=== PATIENT | female | born 1955 | race Caucasian/White ===

== ENCOUNTER 2020-11-11 18:46 | Emergency (ER) | payer MEDICAID, SELFPAY ==
--- NOTE | ~2020-11-11 | XR_ITS ---
EXAMINATION: XR HAND, LEFT CLINICAL INFORMATION: Thumb pain COMPARISON: None TECHNIQUE: PA, lateral, and oblique views of the left hand. FINDINGS: Mild degenerative changes present at the DIP joints most marked in the first and fifth digits. Otherwise, the exam is within normal limits. No fracture seen. XR/XR hand LT min 3V IMPRESSION: Degenerative changes present first and fifth DIP joints.
[2020-11-11 19:07] VITALS: BP 116/68; PULSE 82; RESP 16; TEMP 36.8; O2SAT 97; BMI 36.8
--- NOTE | 2020-11-11 20:57 | ED_ITS ---
HPI - Extremity Problem General Chief complaint: Extremity Injury, Upper Stated complaint: thumb inj Source: patient Mode of arrival: ambulatory Limitations: no limitations History of Present Illness HPI Narrative: 65-year-old female with past medical history fibromyalgia, hypertension, and diabetes presents with left thumb injury. She was walking her dog and the dog ran away, pulling her thumb backwards. She states that she is unable to bend the thumb. Does not have any pain in the other digits, denies falling, or any other complaints. MD Complaint: extremity pain (Left thumb) Onset (ago): hour(s) (Within the hour of arrival) Pain Consistency: constant Location: left Severity scale (1-10): 9 Quality: aching Relieving factors: nothing Exacerbating factors: range of motion and palpation Associated symptoms: denies other symptoms Related Data Previous Rx's Medication Instructions Recorded ibuprofen 600 mg PO TID PRN #20 tab 11/11/20 Allergies Allergy/AdvReac Type Severity Reaction Status Date / Time Penicillins [PENICILLINS] Allergy Severe SWELLING Verified 11/11/20 19:07 zolpidem [From AMBIEN] Allergy Unknown HALLUCINATI Verified 11/11/20 19:07 ONS Review of Systems Review of Systems: Constitutional: No Fever, No Chills ENT/Mouth: No Ear Pain, No Hoarseness, No sore throat Eyes: No Eye Pain, No Swelling, No Redness, No Foreign Body Cardiovascular: No Chest Pain, No SOB Respiratory: No Cough, No Dyspnea Gastrointestinal: No Nausea, No Vomiting, No Diarrhea, No abdominal Pain Genitourinary: No Dysuria, No Hematuria Musculoskeletal: positive left thumb pain, No Myalgias, No Joint Swelling Skin: No Skin lacerations, No rash Neuro: No Weakness, No Numbness, No Paresthesias, No Loss of Consciousness, No Dizziness, No Headache Psych: No Anxiety/Panic, No Depression Heme/Lymph: no easy bruising, no Lymphadenopathy Endocrine: No Polyuria, No Polydipsia Yes all other systems are reviewed and are negative [facility] Past Medical History Attestation statement: The following information was validated with the patient. Source: old records reviewed Medical History (Updated 11/12/20 @ 00:01 by Jose Miguel Lux) Asthma Constipation Fibromyalgia Surgical History History of Hx of colonoscopy Social History Social History Alcohol intake: never Smoking Status: Never smoker Smoked in Last 30 Days: No Second Hand Smoke Exposure: No Use of substances other than those prescribed or required for medical reasons: No Advance Directives: No Advance Directives Information Provided: No Physical Exam Vital Signs: Vital Signs: Last Vital Signs Temp 98.2 F 11/11/20 19:07 Pulse 82 11/11/20 19:07 Resp 16 11/11/20 19:07 BP 116/68 11/11/20 19:07 Pulse Ox 97 11/11/20 19:07 Body Mass Index 36.8 Appearance: Alert. Oriented X3. No acute distress. Eyes: Pupils equal, round and reactive to light. ENT: Pharynx normal. Neck: Normal inspection. Neck supple. CVS: Normal heart rate and rhythm. Pulses normal. Respiratory: No respiratory distress. Breath sounds normal. Abdomen: Soft and nontender. Skin: Skin warm and dry. Normal skin color. Normal skin turgor. Extremities: No lower extremity edema. Full range of motion to all digits except for her left thumb, unable to flex and extend, no snuffbox tenderness, thenar tenderness noted. Neuro: No motor deficit. No sensory deficit. Course Course Course Narrative: 65-year-old female presents with left thumb injury after hyperextension. X-rays are negative for acute findings, but based on patient's physical exam we will place patient in a cock-up splint and have her follow-up with Orthopedics. Patient verbalized understanding of and agrees to plan of care discharge home. MDM - Extremity (Nontraumatic) MDM Narrative Medical decision making narrative: Fracture, sprain, ligament injury Medical Records Attestation: I reviewed the patient's medical records. Imaging Data Left thumb x-ray: Attestation: I personally reviewed and interpreted this imaging study as follows: Radiologist's impression: EXAMINATION: XR HAND, LEFT CLINICAL INFORMATION: Thumb pain COMPARISON: None TECHNIQUE: PA, lateral, and oblique views of the left hand. FINDINGS: Mild degenerative changes present at the DIP joints most marked in the first and fifth digits. Otherwise, the exam is within normal limits. No fracture seen. XR/XR hand LT min 3V IMPRESSION: Degenerative changes present first and fifth DIP joints. Discharge Plan Discharge Clinical Impression: Left thumb sprain Patient Disposition: Home, Self-Care Instructions: Finger Sprain (ED) Additional Instructions: You were evaluated for left thumb pain. X-rays negative for fracture or dislocation. It is suspected that you have a sprain to the left thumb. Please follow-up with orthopedics. Use Motrin as needed for pain management. Use cock-up splint as needed for comfort. Please use ice elevation to help reduce swelling and pain. Thank you for choosing this emergency department for evaluation. Please follow-up with primary care physician as needed. Return to the emergency department for any new, concerning, or worsening symptoms. Prescriptions: New ibuprofen 600 mg tablet 600 mg PO TID PRN (Reason: pain) Qty: 20 RF: 0 Referrals: Lauren Grande PA-C [[facility]] - 2 days (Suspected left thumb sprain) Interventions: ED Discharge Assessment Last Done: 11/11/20 22:00 Discharge Date/Time: 11/11/20 22:05
== END 2020-11-11 22:05 | disposition home or self-care (01) ==
PROVIDERS: Emergency Provider Internal Medicine
DX: S63.602A Unspecified sprain of left thumb, initial encounter (principal); M79.642 Pain in left hand; X50.0XXA Overexertion from strenuous movement or load, initial encounter; Y93.K1 Activity, walking an animal; Y92.480 Sidewalk as the place of occurrence of the external cause; Y99.9 Unspecified external cause status; Z79.899 Other long term (current) drug therapy
CPT/HCPCS: 29130; 73130; 99284

== ENCOUNTER 2021-03-08 02:56 | Emergency (ER) | payer MEDICAID, SELFPAY ==
--- NOTE | ~2021-03-08 | CT_ITS ---
EXAMINATION: CT ABDOMEN AND PELVIS WITHOUT CONTRAST CLINICAL INFORMATION: Right flank pain COMPARISON: None TECHNIQUE: Multidetector volumetric imaging was performed from the superior aspect of the liver through the pubic symphysis. Sagittal and coronal reformatted images were obtained on the technologist's workstation. This CT examination was performed using dose optimization techniques as appropriate, variously including the following: *Automated exposure control *Adjustment of mA and/or kV according to patient size (this includes techniques or standardized protocols for targeted exams where dose is matched to indication/reason for exam; i.e. extremities or head) *Use of iterative reconstruction technique DLP: 626 mGy-cm FINDINGS: LUNG BASES: The visualized lung bases are unremarkable. LIVER, GALLBLADDER, AND BILIARY TREE: The liver is normal in size, shape, and attenuation. No focal hepatic lesion or biliary ductal dilatation is present. The gallbladder is unremarkable with no evidence of radiopaque gallstones, gallbladder wall thickening, or obvious pericholecystic inflammatory changes. PANCREAS: Unremarkable. SPLEEN: Unremarkable. ADRENAL GLANDS: Unremarkable. KIDNEYS AND URETERS: The right kidney is atrophic. There is a right lower pole renal calculus measuring up to 8 mm. There is mild prominence of the right ureter with no obstructing calculus seen. No left-sided hydronephrosis or obstructing calculus. BLADDER: Mildly distended and grossly unremarkable. GASTROINTESTINAL TRACT: The small and large bowel are unremarkable. The appendix may be collapsed. No free fluid or free air is seen. ABDOMINAL WALL: No significant hernia is appreciated. LYMPH NODES: Normal. VASCULAR: Mild vascular calcification noted. PELVIC VISCERA: Unremarkable. OSSEOUS STRUCTURES: Unremarkable. CT/CT abdomen pelvis wo con IMPRESSION: Atrophic right kidney and mildly dilated ureter, with no obstructing calculus seen. Right lower pole renal calculus measures up to 8 mm.
[2021-03-08 02:58] VITALS: BP 137/82; PULSE 88; RESP 16; TEMP 36.8; O2SAT 95; BMI 33.0
[2021-03-08 03:22] LABS: Glucose Urine UA NEG (NEG); Leukocyte Esterase Urine 2+ (NEG); Nitrite Urine NEG (NEG); Specific Gravity - Urine 1.025 (1.005-1.025); UACC Culture Trigger YES; Urine Blood 3+ (NEG); Urine Ketones 5 MG/DL (NEG); Urine Protein 3+ MG/DL (NEG-TRACE)
[2021-03-08 03:24] LABS: Appearance Urine TURBID; Color Urine YELLOW
[2021-03-08 03:33] LABS: MANUAL DIFF FLAG NO
[2021-03-08 03:35] LABS: Basophils Absolute Auto 0.1 X10*3/uL (0.0-0.2); Basophils Percent Auto 0.7 % (0-2); Eosinophils Absolute Auto 0.2 X10*3/uL (0.0-0.4); Hematocrit 41.3 % (37-47); Hemoglobin 13.1 g/dl (12.0-16.0); Imm Gran Abs Auto 0.02 X10*3/uL (0.00-0.03); Imm Gran Pct Auto 0.2 % (0.0-0.4); Lymphocytes Absolute Auto 2.3 X10*3/uL (1.2-4.9); Lymphocytes Percent Auto 20.7 % (20-40); Mean Corpuscular HGB Conc 31.7 g/dl (31.0-35.0); Mean Corpuscular Hemoglobin 25.5 pg (27.0-33.0); Mean Corpuscular Volume 80.5 fL (80-98); Mean Platelet Volume 9.9 fL (9.4-12.3); Monocytes Absolute Auto 0.5 X10*3/uL (0.1-1.2); Monocytes Percent Auto 4.9 % (2-11); Neutrophils Absolute Auto 7.8 X10*3/uL (2.0-8.3); Neutrophils Percent Auto 71.5 % (45-73); Platelet Count 342 X10*3/uL (160-400); Red Blood Count 5.13 X10*6/uL (4.20-5.50); Red Cell Distribution Width 14.8 % (11.0-16.0); White Blood Count 10.9 X10*3/uL (4.8-10.8)
--- NOTE | 2021-03-08 03:35 | ED_ITS ---
HPI - Female Genitourinary General Chief complaint: Urogenital-Female Stated complaint: abd pain, can't pee Time Seen by Provider: 03/08/21 03:26 Source: patient Mode of arrival: ambulatory Limitations: no limitations History of Present Illness HPI Narrative: Patient comes to the emergency room complaining of with the right flank pain that started 2 hours prior to arrival. Patient states the pain is constant, nonradiating. Patient states that initially she could not pass urine, but when she could, she thinks she saw gravel like material in her urine, no blood. Patient denies fever chills Related Data Previous Rx's Medication Instructions Recorded ibuprofen 600 mg PO TID PRN #20 tab 11/11/20 levofloxacin 500 mg PO DAILY #6 tab 03/08/21 Allergies Allergy/AdvReac Type Severity Reaction Status Date / Time Penicillins [PENICILLINS] Allergy Severe SWELLING Verified 03/08/21 02:58 zolpidem [From AMBIEN] Allergy Unknown HALLUCINATI Verified 03/08/21 02:58 ONS Review of Systems Review of Systems: Constitutional : No Weight loss, No Fever, No Chills, No Night Sweats, No Fatigue, No Malaise ENT/Mouth : No Hearing loss, No Ear Pain, No Nasal Congestion, No Sinus Pain, No Hoarseness, No sore throat, No Rhinorrhea, No Swallowing Difficulty Eyes: No Eye Pain, No Swelling, No Redness, No Foreign Body, No Discharge, No Vision Changes Cardiovascular : No Chest Pain, No SOB, No Dyspnea on Exertion, No Orthopnea, No Edema, No Palpitations Respiratory : No Cough, No Sputum, No Wheezing, No Smoke Exposure, No Dyspnea Gastrointestinal : No Nausea, No Vomiting, No Diarrhea, No Constipation, No abdominal Pain, No Hematochezia, No Melena Genitourinary : no irregular bleeding, complaining of dysuria, occasional di fficulty urinating for the last 2 hours, No Urinary Frequency, No Hematuria, No Urinary Incontinence, No Urgency, complaining of right Flank Pain, No Urinary Flow Changes, No Hesitancy Musculoskeletal : No joint pain, No Myalgias, No Joint Swelling Skin : No Skin Lesions, No rash Neuro : No Weakness, No Numbness, No Paresthesias, No Loss of Consciousness, No Dizziness, No Headache Psych : No Anxiety/Panic, No Depression, No SI/HI/AH/VH, No Social Issues, Heme/Lymph: No Bruising, No Bleeding,No Lymphadenopathy Endocrine : No Polyuria, No Polydipsia, No Temperature Intolerance [facility] Past Medical History Medical History Asthma Constipation Fibromyalgia Surgical History History of Hx of colonoscopy Social History Social History Alcohol intake: never Second Hand Smoke Exposure: No Advance Directives: No Advance Directives Information Provided: No Physical Exam Vital Signs: Vital Signs: Last Vital Signs Temp 98.2 F 03/08/21 02:58 Pulse 88 03/08/21 02:58 Resp 16 03/08/21 02:58 BP 137/82 03/08/21 02:58 Pulse Ox 95 03/08/21 02:58 Body Mass Index 33.0 Appearance: Alert. Oriented X3. No acute distress. Eyes: Pupils equal, round and reactive to light. ENT: Pharynx normal. Neck: Normal inspection. Neck supple. No lymph nodes noted. No crepitus CVS: Normal heart rate and rhythm. Pulses normal. Normal S1 and S2 Respiratory: No respiratory distress. Breath sounds normal. No Wheezing. No rales Abdomen: Soft and nontender. No rigidity. No distention. Mild CVA tenderness in the right side Skin: Skin warm and dry. Normal skin color. Normal skin turgor. Extremities: No lower extremity edema. No lower extremity edema. No Lacerations. No Rash Neuro: Oriented X 3. No motor deficit. No sensory deficit. Moving all extermities. No slurred speech. Course Course Course Narrative: I discussed with the patient that she does not have ureterolithiasis at this time, patient does have an atrophic right kidney and a right lower pole calculus. Patient states that she is prone to having UTIs, patient will be treated with levofloxacin, since patient has right flank pain she clinically has pyelonephritis. At this time, sepsis is not suspected. Patient instructed to follow up with urology since she has recurrent UTIs, patient may need long-term antibiotics to prevent UTIs. MDM - Female Genitourinary Lab Data Result diagrams: 03/08/21 03:28 03/08/21 03:28 Labs: Lab Results 03/08/21 03/08/21 03/08/21 Range/Units 03:06 03:28 03:28 WBC 10.9 H (4.8-10.8) X10*3/uL RBC 5.13 (4.20-5.50) X10*6/uL Hgb 13.1 (12.0-16.0) g/dl Hct 41.3 (37-47) % MCV 80.5 (80-98) fL MCH 25.5 L (27.0-33.0) pg MCHC 31.7 (31.0-35.0) g/dl RDW 14.8 (11.0-16.0) % Plt Count 342 (160-400) X10*3/uL MPV 9.9 (9.4-12.3) fL Immature Gran % (Auto) 0.2 (0.0-0.4) % Neut % (Auto) 71.5 (45-73) % Lymph % (Auto) 20.7 (20-40) % [place] % (Auto) 4.9 (2-11) % Eos % (Auto) 2.0 (0-4) % Baso % (Auto) 0.7 (0-2) % Lymph # (Auto) 2.3 (1.2-4.9) X10*3/uL [place] # (Auto) 0.5 (0.1-1.2) X10*3/uL Eos # (Auto) 0.2 (0.0-0.4) X10*3/uL Baso # (Auto) 0.1 (0.0-0.2) X10*3/uL Abs Immat Gran (auto) 0.02 (0.00-0.03) X10*3/uL Absolute Neuts (auto) 7.8 (2.0-8.3) X10*3/uL Absolute Nucleated RBC 0.000 (0.0-0.012) X10*3/uL Nucleated RBC % (auto) 0.0 (0.0-0.2) /100WBC Sodium 140 (135-145) mmol/L Potassium 3.9 (3.3-5.1) mmol/L Chloride 107 (96-108) mmol/L Carbon Dioxide 24 (22-29) mmol/L Anion Gap 13 (12-20) BUN 15 (9-16) mg/dL Creatinine 1.32 (0.5-1.4) mg/dL Estim Creat Clear Calc 34.6 Estimated GFR 41 Random Glucose 119 H (60-115) mg/dL Calcium 9.6 (8.4-10.2) mg/dL Total Bilirubin 0.6 (0.0-1.0) mg/dL AST 16 (5-31) U/L ALT 14 (0-31) U/L Alkaline Phosphatase 132 H (39-117) U/L Total Protein 7.6 (6.5-8.0) g/dL Albumin 4.3 (3.5-5.0) g/dL Urine Color YELLOW Urine Appearance TURBID Urine pH 6.0 (5.0-8.0) Ur Specific [place] 1.025 (1.005-1.025) Urine Protein 3+ H (NEG-TRACE) MG/DL Urine Glucose (UA) NEG (NEG) MG/DL Urine Ketones 5 (NEG) MG/DL Urine Blood 3+ H (NEG) Urine Nitrite NEG (NEG) Ur Leukocyte Esterase 2+ H (NEG) Urine RBC 1-4 (0) /HPF Urine WBC TNTC H (0-4) /HPF Urine WBC Clumps NOTED Ur Squamous Epith Cells TRACE /LPF Urine Bacteria TRACE /LPF Imaging Data CT scan - abdomen: Radiologist's impression: FINDINGS: LUNG BASES: The visualized lung bases are unremarkable. LIVER, GALLBLADDER, AND BILIARY TREE: The liver is normal in size, shape, and attenuation. No focal hepatic lesion or biliary ductal dilatation is present. The gallbladder is unremarkable with no evidence of radiopaque gallstones, gallbladder wall thickening, or obvious pericholecystic inflammatory changes. PANCREAS: Unremarkable. SPLEEN: Unremarkable. ADRENAL GLANDS: Unremarkable. KIDNEYS AND URETERS: The right kidney is atrophic. There is a right lower pole renal calculus measuring up to 8 mm. There is mild prominence of the right ureter with no obstructing calculus seen. No left-sided hydronephrosis or obstructing calculus. BLADDER: Mildly distended and grossly unremarkable. GASTROINTESTINAL TRACT: The small and large bowel are unremarkable. The appendix may be collapsed. No free fluid or free air is seen. ABDOMINAL WALL: No significant hernia is appreciated. LYMPH NODES: Normal. VASCULAR: Mild vascular calcification noted. PELVIC VISCERA: Unremarkable. OSSEOUS STRUCTURES: Unremarkable. CT/CT abdomen pelvis wo con IMPRESSION: Atrophic right kidney and mildly dilated ureter, with no obstructing calculus seen. Right lower pole renal calculus measures up to 8 mm. Discharge Plan Discharge Clinical Impression: Pyelonephritis Patient Disposition: Home, Self-Care Instructions: Kidney Infection (ED) Additional Instructions: Please follow-up with your primary care physician tomorrow. If you have any worsening or new symptoms, please return to the emergency room or call 911 Prescriptions: New levofloxacin 500 mg tablet 500 mg PO DAILY Qty: 6 RF: 0 No Action ibuprofen 600 mg tablet 600 mg PO TID PRN (Reason: pain) Qty: 20 RF: 0
[2021-03-08 03:45] LABS: Bacteria Urine TRACE /LPF; Squamous Epithelial Cell Urine TRACE /LPF; UACC CULT YES; WBC Clumps Urine NOTED; WBC Urine TNTC /HPF (0-4)
[2021-03-08 04:01] LABS: Alanine Aminotransferase 14 U/L (0-31); Albumin Level 4.3 g/dL (3.5-5.0); Alkaline Phosphatase 132 U/L (39-117); Anion Gap 13 (12-20); Aspartate Amino Transferase 16 U/L (5-31); Bilirubin Total 0.6 mg/dL (0.0-1.0); Blood Urea Nitrogen 15 mg/dL (9-16); Calcium 9.6 mg/dL (8.4-10.2); Carbon Dioxide 24 mmol/L (22-29); Chloride 107 mmol/L (96-108); Creatinine Clr Calc Pharmacy 34.6; Estimated Glomerular Filt Rate 41; Glucose Random 119 mg/dL (60-115); Potassium 3.9 mmol/L (3.3-5.1); Sodium 140 mmol/L (135-145); Total Protein 7.6 g/dL (6.5-8.0)
--- NOTE | 2021-03-08 04:22 | PC.NURSE ---
PT TO ROOM, CHG INTO GOWN AND MD AT BEDSIDE. PT ALERT, SPEAKING IN FULL SENTENCES, RESPIRATIONS EASY, N/L. SKIN W/D. AWAITING FURTHER ORDERS.
[2021-03-08] MEDS: levoFLOXacin 500 MG TABLET PO (06:22)
== END 2021-03-08 06:39 | disposition home or self-care (01) ==
PROVIDERS: Emergency Provider Emergency Medicine
DX: N12 Tubulo-interstitial nephritis, not specified as acute or chronic (principal); N20.0 Calculus of kidney; I10 Essential (primary) hypertension; E11.9 Type 2 diabetes mellitus without complications
CPT/HCPCS: 36415; 74176; 80053; 81001; 85025; 87086; 99283; 99284

== ENCOUNTER 2021-11-01 12:39 | Emergency (ER) | payer OTHER, SELFPAY ==
--- NOTE | ~2021-11-01 | XR_ITS ---
EXAMINATION: XR CHEST CLINICAL INFORMATION: Chest pain COMPARISON: Previous chest x-ray February 2017 TECHNIQUE: Frontal view of the chest was obtained. FINDINGS: No significant abnormality is noted involving the heart, lungs, mediastinum, bony thorax or soft tissues. XR/XR chest 1V IMPRESSION: Unremarkable examination.
[2021-11-01 12:44] VITALS: BP 139/64; PULSE 98; RESP 18; TEMP 36.9; O2SAT 98; BMI 34.1
--- NOTE | 2021-11-01 12:47 | ECG_ITS ---
Test Reason : CHEST PAIN Blood Pressure : / mmHG Vent. Rate : 074 BPM Atrial Rate : 074 BPM P-R Int : 144 ms QRS Dur : 068 ms QT Int : 388 ms P-R-T Axes : 018 016 024 degrees QTc Int : 430 ms Normal sinus rhythm Low voltage QRS Borderline ECG When compared with ECG of 16-MAR-2017 07:22, No significant change was found Referred By: Generic ED Physician Electronically Signed By:BRANDON TOLENTINO MD
[2021-11-01 13:01] LABS: MANUAL DIFF FLAG NO
[2021-11-01 13:02] LABS: Basophils Absolute Auto 0.1 X10*3/uL (0.0-0.2); Basophils Percent Auto 0.8 % (0-2); Eosinophils Absolute Auto 0.1 X10*3/uL (0.0-0.4); Hematocrit 39.7 % (37.0-47.0); Hemoglobin 12.8 g/dl (12.0-16.0); Imm Gran Abs Auto 0.01 X10*3/uL (0.00-0.03); Imm Gran Pct Auto 0.2 % (0.0-0.4); Lymphocytes Absolute Auto 1.9 X10*3/uL (1.2-4.9); Lymphocytes Percent Auto 29.2 % (20-40); Mean Corpuscular HGB Conc 32.2 g/dl (31.0-35.0); Mean Corpuscular Hemoglobin 26.3 pg (27.0-33.0); Mean Corpuscular Volume 81.7 fL (80.0-98.0); Mean Platelet Volume 10.2 fL (9.4-12.3); Monocytes Absolute Auto 0.3 X10*3/uL (0.1-1.2); Monocytes Percent Auto 3.8 % (2-11); Neutrophils Absolute Auto 4.2 x10*3/uL (2.0-8.3); Platelet Count 289 X10*3/uL (160-400); Red Blood Count 4.86 X10*6/uL (4.20-5.50); Red Cell Distribution Width 13.7 % (11.0-16.0); White Blood Count 6.5 X10*3/uL (4.8-10.8)
[2021-11-01 13:22] LABS: Anion Gap 10 (12-20); Blood Urea Nitrogen 12 mg/dL (9-16); Calcium 9.3 mg/dL (8.4-10.2); Carbon Dioxide 24 mmol/L (22-29); Chloride 110 mmol/L (96-108); Creatinine Clr Calc Pharmacy 54.4; Estimated Glomerular Filt Rate > 60; Glucose Random 129 mg/dL (60-115)
[2021-11-01 13:27] LABS: Sodium 140 mmol/L (135-145); Troponin-I High Sensitivity < 3.5 ng/L (<3.5-17.0)
--- NOTE | 2021-11-01 20:08 | ED.CHESTPAIN ---
HPI - Chest Pain General Chief Complaint: Chest Pain Stated Complaint: chest pain Time Seen by Provider: 11/01/21 19:54 Source: patient Mode of arrival: ambulatory Limitations: no limitations History of Present Illness HPI narrative: 66-year-old female who presents emergency department for evaluation left-sided chest pain palpitations. The patient states that afternoon she was in a car going to lunch with her daughter when she had a sudden onset of palpitations. She describes the sensation as a heart racing and squeezing sensation the left side of her heart. She states that this sensation lasted for approximately 20 minutes then resolved. She had a associated lightheadedness, dizziness, nausea and left hand numbness. She also felt hot and sweaty. She states that she did have palpitations in the past and believes that she had a Holter monitor in the past as well. She states that her 5 years prior and she is under lot of stress since she is taking care of 2 of her children with autism and developmental delay (19 years old and 30 years old). She denied fever, rhinorrhea, sore throat, cough, shortness of breath, dyspnea on exertion, vomiting, diarrhea, abdominal pain. Related Data Previous Rx's Medication Instructions Recorded ibuprofen 600 mg tablet 600 mg PO TID PRN #20 tab 11/11/20 levofloxacin 500 mg tablet 500 mg PO DAILY #6 tab 03/08/21 Allergies Allergy/AdvReac Type Severity Reaction Status Date / Time Penicillins [PENICILLINS] Allergy Severe SWELLING Verified 03/08/21 02:58 zolpidem [From AMBIEN] Allergy Unknown HALLUCINATI Verified 03/08/21 02:58 ONS Review of Systems Review of Systems: Yes all other systems are reviewed and are negative [facility] Past Medical History [facility] Narrative: Past medical history: Asthma, fibromyalgia. The patient's past medical history lists hypertension and diabetes but she states that she does not have these 2 conditions. Past surgical history: . Social history: She denies tobacco, alcohol and drug use. Medical History Asthma Constipation Fibromyalgia Surgical History History of Hx of colonoscopy Social History Social History Alcohol intake: never Second Hand Smoke Exposure: No Advance Directives: No Advance Directives Information Provided: Yes Physical Exam Vital Signs: Vital Signs: Last Vital Signs Temp 98.3 F 11/01/21 20:22 Pulse 80 11/01/21 20:22 Resp 16 11/01/21 20:22 BP 117/81 11/01/21 20:22 Pulse Ox 100 11/01/21 20:22 BMI result Body Mass Index 34.1 Const: General: cooperative and no acute distress Orientation/consciousness: oriented to person and oriented to place Limitations: no limitations HENMT: Head: Yes normal to inspection, Yes normocephalic and Yes atraumatic Ears: external ears normal General nose exam: Normal external nose present Face and sinus: Yes normal facial exam Mouth: Normal oral and palatal mucosa present Throat: Yes posterior oropharynx normal Eyes: General: appearance normal, both eyes and all related structures Pupils: Equal, round and reactive pupils present Neck: Neck: Yes normal visual inspection, Yes no lymphadenopathy, Yes trachea midline and Yes supple Chest: Chest palpation & inspection: normal inspection of the chest and normal palpation of entire chest wall Resp: Effort & Inspection: normal respiratory effort and able to speak in complete sentences Auscultation: clear to auscultation bilaterally Cardio: Rate: regular rate Rhythm: regular rhythm Heart sounds: S1 normal heart sound present, S2 normal heart sound present and no murmurs GI: Inspection: Yes normal to inspection Palpation (GI): Soft to palpation, nontender and no guarding Auscultation: normal bowel sounds : General: Yes no CVA tenderness Back/Spine/Pelvis: Back: no CVA tenderness Skin: General skin exam: no rashes or lesions noted Neuro: General: oriented to person and oriented to place Cranial nerves: Yes CN's II-XII intact bilaterally and Yes Equal, round and reactive pupils present Cognition (Neuro): normal cognition Motor exam (neuro): 5/5 motor strength present throughout Extrem: General: Yes normal to inspection Psych: Appearance: grossly normal Speech and movement: Normal speech and movement present Affect: normal affect Attitude: cooperative Thought process: Normal thought process present Thought content: Normal thought content present Course Course Course Narrative: 66-year-old female who presents emergency department for evaluation of palpitations which lasted approximately 20 minutes. The patient did have associated lightheadedness, left-sided chest heaviness/squeezing sensation, left hand numbness and nausea. Patient states that she has had palpitations in the past and believes that she had a Holter monitor in the past. At the time my evaluation the patient had no symptoms. Patient's vital signs were normal. Physical examination was unremarkable. Patient's CBC, BMP were normal. High sensitivity troponin I was below detectable limits. Twelve EKG was unremarkable. The patient's presentation is consistent with palpitations I did discuss this with her. She was advised to contact her PCP to get an outpatient Holter monitor and further evaluation of her palpitations. She was given printed and verbal instructions and discharged home. MDM - Chest Pain Lab Data Attestation: I reviewed the patient's lab results. Result diagrams: 11/01/21 12:57 11/01/21 12:57 Labs: Lab Results 11/01/21 11/01/21 11/01/21 Range/Units 12:57 12:57 12:57 WBC 6.5 (4.8-10.8) X10*3/uL RBC 4.86 (4.20-5.50) X10*6/uL Hgb 12.8 (12.0-16.0) g/dl Hct 39.7 (37.0-47.0) % MCV 81.7 (80.0-98.0) fL MCH 26.3 L (27.0-33.0) pg MCHC 32.2 (31.0-35.0) g/dl RDW 13.7 (11.0-16.0) % Plt Count 289 (160-400) X10*3/uL MPV 10.2 (9.4-12.3) fL Immature Gran % (Auto) 0.2 (0.0-0.4) % Neut % (Auto) 64.0 (45-73) % Lymph % (Auto) 29.2 (20-40) % [place] % (Auto) 3.8 (2-11) % Eos % (Auto) 2.0 (0-4) % Baso % (Auto) 0.8 (0-2) % Lymph # (Auto) 1.9 (1.2-4.9) X10*3/uL [place] # (Auto) 0.3 (0.1-1.2) X10*3/uL Eos # (Auto) 0.1 (0.0-0.4) X10*3/uL Baso # (Auto) 0.1 (0.0-0.2) X10*3/uL Abs Immat Gran (auto) 0.01 (0.00-0.03) X10*3/uL Absolute Neuts (auto) 4.2 (2.0-8.3) x10*3/uL Absolute Nucleated RBC 0.000 (0.0-0.012) X10*3/uL Nucleated RBC % (auto) 0.0 (0.0-0.2) /100WBC Sodium 140 (135-145) mmol/L Potassium 4.0 (3.3-5.1) mmol/L Chloride 110 H (96-108) mmol/L Carbon Dioxide 24 (22-29) mmol/L Anion Gap 10 L (12-20) BUN 12 (9-16) mg/dL Creatinine 0.92 (0.5-1.4) mg/dL Estim Creat Clear Calc 54.4 Estimated GFR > 60 Random Glucose 129 H (60-115) mg/dL Calcium 9.3 (8.4-10.2) mg/dL Troponin I High Sens < 3.5 (<3.5-17.0) ng/L ECG Data ECG #1: Interpretation: 1246: Normal sinus rhythm with a rate of 74, normal MS interval, QRS duration and QTC interval, inverted T-wave in lead 3, no ST segment elevation, no ST segment depression, no PACs, no PVCs, this is a normal EKG. Discharge Plan Discharge Clinical Impression: Palpitation Patient Disposition: Home, Self-Care Instructions: Heart Palpitations (DC) Additional Instructions: Your blood work today was normal. Your chest x-ray was unremarkable. Your EKG was unremarkable. Your symptoms are consistent with palpitations. You should call your doctor tomorrow to discuss getting an outpatient Holter monitor to further evaluate your palpitations. You may need other testing as well. Follow-up with your doctor in 2 days. Please return to the emergency department if your symptoms get worse or if you develop any symptoms that are concerning to you. Prescriptions: No Action levofloxacin 500 mg tablet 500 mg PO DAILY Qty: 6 0RF Rx Instructions: Start 03/09/2021 in the morning ibuprofen 600 mg tablet 600 mg PO TID PRN (Reason: pain) Qty: 20 0RF
[2021-11-01 20:22] VITALS: BP 117/81; PULSE 80; RESP 16; TEMP 36.8; O2SAT 100
== END 2021-11-01 20:33 | disposition home or self-care (01) ==
PROVIDERS: Emergency Provider Emergency Medicine Emergency Medical Services
DX: R00.2 Palpitations (principal)
CPT/HCPCS: 36415; 71045; 80048; 84484; 85025; 93005; 99283; 99284

== ENCOUNTER 2022-01-20 09:45 | Outpatient (REF) | payer OTHER, SELFPAY ==
[2022-01-20 11:54] LABS: Anion Gap 9 (12-20); Blood Urea Nitrogen 11 mg/dL (9-16); Calcium 9.4 mg/dL (8.4-10.2); Carbon Dioxide 26 mmol/L (22-29); Chloride 109 mmol/L (96-108); Estimated Glomerular Filt Rate 59; Glucose Random 78 mg/dL (60-115); Magnesium 2.2 mg/dL (1.6-2.6); Potassium 4.3 mmol/L (3.3-5.1); Sodium 140 mmol/L (135-145)
[2022-01-20 12:02] LABS: TSH reflex Free T4 1.39 uIU/mL (0.32-4.0)
== END 2022-01-20 09:46 | disposition home or self-care (01) ==
LOC: HO.LAB 09:45
PROVIDERS: PCP Internal Medicine; Referring Provider Internal Medicine; Visit Provider Internal Medicine Cardiovascular Disease
DX: R06.02 Shortness of breath (principal); R00.2 Palpitations; I50.30 Unspecified diastolic (congestive) heart failure
CPT/HCPCS: 36415; 80048; 83735; 84443; 99202

== ENCOUNTER → 2022-05-22 08:00 | Outpatient (REF) | payer OTHER, SELFPAY ==
--- NOTE | 2022-05-22 08:02 | HM_ITS ---
* Total monitoring time 4 days and 14 hours. * Underlying rhythm is sinus. Average rate 75/Min. Range 52 to 131/Min. * Very rare supraventricular ectopy. * No sustained arrhythmias. * No significant pauses or AV blocks. * No patient diary available. MTDD
--- NOTE | 2022-05-22 08:02 | CA_ITS ---
Acquisition Time: 2022-05-22 08:58:52 Total Exercise Time: 00:02:58 Test Indications: SOB Medications: SEE CHART Protocol: JERONIMO Max HR: 137 BPM 88% of Pred: 154 BPM Max BP: 144/060 mmHG Max Work Load: 4.6 METS Exercise stress test with exercise 2 min 58 sec of Jeronimo protocol, achieving 88% MPHR, with report of moderate sob and then sudden onset dizziness with request to stop ( everything spinning ), No chest discomfort, without arrythmia, with normotensive response to exercise, without EKG changes meeting criteira for ischemia at achieved workload, Baseline EKG does show T wave inversions lead III and aVF which is present throughtout test. Will arrange for a pharmacological nuclear stress test for further evaluation. Test reviewed with Dr. Reza. Referred By: Jimi White Overread By: JULISSA WORTHINGTON
--- NOTE | 2022-05-22 08:02 | CA_ITS ---
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 The calculated ejection fraction is 64% by biplane method. - Peak LV GLS -19%. - No obvious valvular pathology seen on this study. Findings Left Ventricle Normal left ventricular cavity size. There is normal left ventricular wall thickness. The left ventricular systolic function is normal. The calculated ejection fraction is 64% by biplane method. There is no evidence of regional wall motion abnormalities. Diastolic function is normal for age. Peak LV GLS -19%. Atria Both atria are normal in size. Aortic Valve There is a normal trileaflet aortic valve. There is no aortic valve stenosis. There is no aortic valve regurgitation. Mitral Valve The mitral valve appears normal. There is no mitral valve regurgitation. There is no mitral valve stenosis. Pulmonic Valve The pulmonic valve is likely normal. Tricuspid Valve Normal tricuspid valve structure. There is trace tricuspid valve regurgitation. There is no evidence of pulmonary hypertension. Great Vessels The asc aorta is normal in size. Venous The inferior vena cava is normal in size and collapses greater than 50% with inspiration. Pericardium/Pleural There is no evidence of pericardial effusion. Prior Study Comparison No significant change compared to prior study dated: 10/25/2006. Recommendations, Care & Conclusions No obvious valvular pathology seen on this study. Measurements 2D Linear Measurements IVSd: 0.98 0.6-0.9/0.6-1.0 cm LVIDd: 4.30 3.9-5.3/4.2-5.9 cm LVIDd Index: 2.46 2.4-3.2/2.2-3.1 cm/m2 LVIDs: 3.01 2.0-3.6 cm LVPWd: 0.48 0.7-1.1 cm LA Diam: 2.70 2.7-3.8/3.0-4.0 cm LAIDs Index: 1.54 1.5-2.3 cm/m2 LV Mass: 115.96 67-162/88-224 g LV Mass Index: 66.26 43-95/49-115 g/m2 LVOT Diam: 2.00 3.0+(-)1.3 cm 2D Systolic Function EF 4C: 56.90 >55% EF 2C: 69.50 >55% EF BiP: 63.50 >55% Mitral Valve MV Pk E: 0.75 MV PK A: 0.56 MV Decel Time: 182.00 E/A: 1.30 E'Lateral: 13.50 E'Medial: 8.49 E/E' Med: 8.80 E/E' Lat: 5.50 PHT: 53.00 MVA PHT: 4.15 Decel [place]: 4.10 Aortic Valve AoV Pk [place]orge: 1.33 AoV Mn [place]orge: 0.90 AoV VTI: 0.28 AoV Pk Grad: 7.00 Aov Mn Grad: 4.00 MATTHEW Cont.VTI: 2.64 LVOT LVOT Pk [place]orge: 1.10 LVOT Mn [place]: 0.74 LVOT VTI: 0.23 LVOT Pk Grad: 5.00 LVOT Mn Grad: 2.00 LVOT Diam: 2.00 LVOT Area: 3.14 Diastolic Function MV Pk E: 0.75 MV Pk A: 0.56 E/A: 1.30 E'Medial: 8.49 E/E' Med: 8.80 E' Laterial: 13.50 E/E' Lat: 5.50 Right Ventricle TAPSE (mm): 17.90 TVS' Gorge: 10.20 Tricuspid Valve TR Pk [place]: 2.32 TR Pk Grad: 22.00 RA Press: 3.00 RVSP: 25.00 Great Vessels Aorta Sinus of Valsalva: 2.70 2.0-3.5 cm Ao Asc: 2.70 2.1-3.4 cm Pulmonary Valve PV Pk Gorge: 0.87 Peak PV Grad: 3.00 Updated in Other Vendor System with Status of Final Wilmer Bailey MD electronically signed on 05/23/2022 12:40:15 PM with status of Final
== END ==
LOC: HO.CARD 08:00
PROVIDERS: Visit Provider Internal Medicine Cardiovascular Disease
DX: R00.2 Palpitations (principal); R06.02 Shortness of breath
CPT/HCPCS: 93017; 93242; 93306; 93356

== ENCOUNTER → 2022-06-07 11:01 | Outpatient (BNVA) | payer OTHER, SELFPAY | PROVIDERS: PCP Internal Medicine; Referring Provider Internal Medicine; Visit Provider Internal Medicine Cardiovascular Disease | DX: R06.02 Shortness of breath (principal) | CPT/HCPCS: 99212 ==

== ENCOUNTER 2022-09-12 18:17 | Emergency (ER) | payer OTHER, SELFPAY ==
--- NOTE | ~2022-09-12 | CT_ITS ---
EXAMINATION: CT ABDOMEN AND PELVIS WITHOUT CONTRAST CLINICAL INFORMATION: Left flank pain. Back pain. COMPARISON: CT scan abdomen pelvis 03/08/2021 TECHNIQUE: Multidetector volumetric imaging was performed from the superior aspect of the liver through the pubic symphysis. Sagittal and coronal reformatted images were obtained on the technologist's workstation. This CT examination was performed using dose optimization techniques as appropriate, variously including the following: *Automated exposure control *Adjustment of mA and/or kV according to patient size (this includes techniques or standardized protocols for targeted exams where dose is matched to indication/reason for exam; i.e. extremities or head) *Use of iterative reconstruction technique DLP: 586 mGy-cm FINDINGS: LUNG BASES: The visualized lung bases are unremarkable. LIVER, GALLBLADDER, AND BILIARY TREE: The liver is normal in size, shape, and attenuation. No focal hepatic lesion or biliary ductal dilatation is present. The gallbladder is unremarkable with no evidence of radiopaque gallstones, gallbladder wall thickening, or obvious pericholecystic inflammatory changes. PANCREAS: Unremarkable. SPLEEN: Unremarkable. ADRENAL GLANDS: Unremarkable. KIDNEYS AND URETERS: Right kidney is atrophic. Left kidney is mildly hypertrophic. 5 x 7 mm nonobstructive calculus of the lower pole right kidney unchanged since prior study. There is no hydronephrosis. No ureteral calculi. BLADDER: Unremarkable. GASTROINTESTINAL TRACT: No acute abnormality. There is no bowel wall thickening /edema. There is no bowel obstruction. There is a moderate volume of stool in the colon. The appendix is nonvisualized . The small bowel loops are unremarkable. The stomach is normal. There is no hiatal hernia. ABDOMINAL WALL: No significant hernia is appreciated. LYMPH NODES: Normal. VASCULAR: Unremarkable. PELVIC VISCERA: Uterus is anteverted. No adnexal abnormality. OSSEOUS STRUCTURES: Unremarkable. CT/CT abdomen pelvis wo IV con IMPRESSION: 1. No acute abnormality CT scan abdomen pelvis. 2. Atrophic right kidney. Nonobstructive calculus lower pole right kidney. No hydronephrosis. No ureteral calculi. Fleischner guidelines were followed.
[2022-09-12 18:38] VITALS: BP 128/82; PULSE 74; RESP 16; TEMP 36.1; O2SAT 100; BMI 33.5
--- NOTE | 2022-09-12 18:40 | ED_ITS ---
HPI - General Adult General Chief complaint: Back Pain/Injury <LEW Gee - Last Filed: 09/25/22 09:43> Stated complaint: pain in left hip/back area <LEW Gee - Last Filed: 09/25/22 09:43> Time Seen by Provider: 09/12/22 20:03 <LEW Gee - Last Filed: 09/25/22 09:43> Source: patient <Yudelka Davis CNP - Last Filed: 09/13/22 01:03> Mode of arrival: ambulatory <Yudelka Davis CNP - Last Filed: 09/13/22 01:03> Limitations: no limitations <Yudelka Davis CNP - Last Filed: 09/13/22 01:03> History of Present Illness HPI narrative: Patient is a 67-year-old female who presents to emergency department for evaluation of left flank pain, radiating into the left lower back and laterally into the left lower abdomen. Onset of symptoms was 1.5 hours prior to arrival, was very sudden in onset. Denies any particular injury. Denies fevers, chills, nausea, vomiting, dysuria, urinary frequency/urgency/hesitancy, hematuria, constipation, diarrhea <Yudelka Davis CNP - Last Filed: 09/13/22 01:03> Related Data Home medications: Home Medications Medication Instructions Recorded Confirmed ferrous sulfate 325 mg (65 mg 325 mg PO DAILY 01/20/22 01/20/22 iron) tablet (Feosol) Previous Rx's Medication Instructions Recorded cephalexin 500 mg capsule 500 mg PO BID #20 caps 09/12/22 <LEW Gee Last Filed: 09/25/22 09:43> Allergies/adverse reactions: Allergies Allergy/AdvReac Type Severity Reaction Status Date / Time Penicillins [PENICILLINS] Allergy Severe SWELLING Verified 06/07/22 11:02 zolpidem [From AMBIEN] Allergy Unknown HALLUCINATI Verified 06/07/22 11:02 ONS <LEW Gee - Last Filed: 09/25/22 09:43> Review of Systems Review of Systems: Constitutional : No Weight loss, No Fever, No Chills ENT/Mouth :? No sore throat, No Rhinorrhea Eyes: No Swelling, No Redness Cardiovascular : No Chest Pain, No SOB, No Edema Respiratory : No Cough, No Sputum, No Wheezing Gastrointestinal : No Nausea, no Vomiting, no Diarrhea, positive abdominal pain, positive flank pain, No Hematochezia, No Melena Genitourinary : No Dysuria, No Urinary Frequency, No Hematuria, No Urgency? Musculoskeletal : No joint pain, No Myalgias, No Joint Swelling Skin : No Skin Lesions, No rash Neuro : No Weakness, No Numbness, No Dizziness, No Headache Psych : No Anxiety/Panic, No Depression Heme/Lymph: No Bruising, No Lymphadenopathy Endocrine : No Polyuria, No Polydipsia <Yudelka Davis CNP - Last Filed: 09/13/22 01:03> Yes all other systems are reviewed and are negative <Yudelka Davis CNP - Last Filed: 09/13/22 01:03> PMFSH Past Medical History Attestation statement: The following information was validated with the patient. <Yudelka Davis CNP - Last Filed: 09/13/22 01:03> Source: old records reviewed <Yudelka Davis CNP - Last Filed: 09/13/22 01:03> Medical History: Medical History Asthma Constipation Fibromyalgia <LEW Gee - Last Filed: 09/25/22 09:43> Surgical History: Surgical History History of Hx of colonoscopy <LEW Gee Last Filed: 09/25/22 09:43> Social History Social History: Social History Alcohol intake: never Second Hand Smoke Exposure: No Advance Directives: No Advance Directives Information Provided: Yes <LEW Gee Last Filed: 09/25/22 09:43> Physical Exam ED Vital Signs: Vital Signs - 24 hr 09/12/22 18:38 Temperature 96.9 F Pulse Rate 74 Respiratory Rate 16 Blood Pressure 128/82 Pulse Oximetry 100 Oxygen Delivery Method Room Air BMI result Body Mass Index 33.5 <LEW Gee - Last Filed: 09/25/22 09:43> Vital Signs - 24 hr 09/12/22 18:38 Temperature 96.9 F Pulse Rate 74 Respiratory Rate 16 Blood Pressure 128/82 Pulse Oximetry 100 Oxygen Delivery Method Room Air BMI result Body Mass Index 33.5 <Yudelka Davis CNP - Last Filed: 09/13/22 01:03> Appearance: Alert.?Oriented to person, place and time. No acute distress.?Normal affect. Eyes: Pupils equal, round and reactive to light.? ENT: Pharynx normal.?? Neck: Normal inspection.? Neck supple.?? CVS: Heart sounds normal. Normal heart rate and rhythm.? Pulses normal.?? Respiratory: No respiratory distress.? Lung sounds clear to auscultation bilaterally?? Abdomen: Soft and non-tender. Positive left CVA tenderness. Normoactive bowel sounds. Skin: Skin warm and dry.? Normal skin color.? Extremities: No lower extremity edema.? Neuro: Moves all extremities spontaneously. Sensation intact bilaterally.No focal neuro deficits. Ambulates with normal steady gait. <Yudelka Davis CNP - Last Filed: 09/13/22 01:03> Course Course Course Narrative: RME: patient presents to the ED for left flank/back pain radiating down left leg. positive for left CVA on palpation. Labs, UA, Abdominal CT scan ordered. <LEW Gee - Last Filed: 09/25/22 09:43> RME: patient presents to the ED for left flank/back pain radiating down left leg. positive for left CVA on palpation. Labs, UA, Abdominal CT scan ordered. <Yudelka Davis CNP - Last Filed: 09/13/22 01:03> Reevaluation(s) Reevaluation #1: CT of the abdomen and pelvis reveals overall no acute abnormality, atrophic right kidney with nonobstructive calculus 5 x 7mm in the lower right pole without hydronephrosis or any ureteral calculi. This is it incidental, patient is asymptomatic on the right. Left flank pain is present, urinalysis concerning for urinary tract infection; microscopic hematuria, positive nitrates, positive pyuria, urine bacteria 4+. At this time concern for pyelonephritis, however she has no AYDE. She is tolerating oral intake. At this time discussed plan of care for discharge home, prescription for antibiotic was sent to patient's pharmacy, she received the first dose while in the emergency department. We reviewed worrisome signs and symptoms that would warrant re- evaluation in the emergency department. She verbalizes understanding, was discharged home with her daughter, ambulatory with steady gait, stable. <Yudelka Davis CNP - Last Filed: 09/13/22 01:03> Time: 21:02 <Yudelka Davis CNP - Last Filed: 09/13/22 01:03> Medications Administered Discontinued Medications Generic Name Dose Route Start Last Admin Trade Name Freq PRN Reason Stop Dose Admin Cephalexin HCl 500 mg 09/12/22 21:46 09/12/22 21:50 Cephalexin 500 Mg Capsule PO 09/12/22 21:47 500 mg ONCE ONE Administration <LEW Gee - Last Filed: 09/25/22 09:43> Medications Administered Discontinued Medications Generic Name Dose Route Start Last Admin Trade Name Freq PRN Reason Stop Dose Admin Cephalexin HCl 500 mg 09/12/22 21:46 09/12/22 21:50 Cephalexin 500 Mg Capsule PO 09/12/22 21:47 500 mg ONCE ONE Administration <Yudelka Davis CNP - Last Filed: 09/13/22 01:03> Medical Decision Making Medical Decision Making MDM Narrative: Patient is a 67-year-old female with past medical history of hypertension, diabetes, fibromyalgia presents emergency department for evaluation of left flank pain without genitourinary symptoms. Overall she is well-appearing at the time of examination, she does have left CVA tenderness upon examination, otherwise abdominal examination is benign. Appears nontoxic, vital signs are stable, afebrile without tachycardia. Will obtain CBC to evaluate for leukocytosis/ anemia, CMP to evaluate for abnormal electrolytes /abnormal renal function/ abnormal hepaticfunction, Urinalysis. Will obtain CT of the abdomen and pelvis to evaluate for diverticulitis, bowel obstruction, hydronephrosis, nephrolithiasis, obstructive urinary stone, pyelonephritis <Yudelka Davis CNP - Last Filed: 09/13/22 01:03> Differential Diagnosis Differential Diagnoses: The differential diagnosis associated with the presentation includes (As noted above) <Yudelka Davis CNP - Last Filed: 09/13/22 01:03> Lab Data [facility] Lab Attestation statement: I reviewed the patient's lab results. <Yudelkakamala Davis CNP - Last Filed: 09/13/22 01:03> Result Diagrams: 09/12/22 19:03 09/12/22 19:03 <LEW Gee - Last Filed: 09/25/22 09:43> Labs: Lab Results 09/12/22 09/12/22 09/12/22 Range/Units 19:03 19:03 19:03 WBC 8.6 (4.8-10.8) X10*3/uL RBC 4.78 (4.20-5.50) X10*6/uL Hgb 12.7 (12.0-16.0) g/dl Hct 39.2 (37.0-47.0) % MCV 82.0 (80.0-98.0) fL MCH 26.6 L (27.0-33.0) pg MCHC 32.4 (31.0-35.0) g/dl RDW 13.9 (11.0-16.0) % Plt Count 296 (160-400) X10*3/uL MPV 10.2 (9.4-12.3) fL Immature Gran % (Auto) 0.2 (0.0-0.4) % Neut % (Auto) 61.1 (45-73) % Lymph % (Auto) 30.7 (20-40) % [place] % (Auto) 5.6 (2-11) % Eos % (Auto) 1.5 (0-4) % Baso % (Auto) 0.9 (0-2) % Lymph # (Auto) 2.6 (1.2-4.9) X10*3/uL [place] # (Auto) 0.5 (0.1-1.2) X10*3/uL Eos # (Auto) 0.1 (0.0-0.4) X10*3/uL Baso # (Auto) 0.1 (0.0-0.2) X10*3/uL Abs Immat Gran (auto) 0.02 (0.00-0.03) X10*3/uL Absolute Neuts (auto) 5.2 (2.0-8.3) x10*3/uL Absolute Nucleated RBC 0.000 (0.0-0.012) X10*3/uL Nucleated RBC % (auto) 0.0 (0.0-0.2) /100WBC PT 11.6 (10.0-13.1) SEC INR 1.0 (0.9-1.1) APTT 40.7 H (26.0-36.4) SEC Sodium 142 (135-145) mmol/L Potassium 4.1 (3.3-5.1) mmol/L Chloride 108 (96-108) mmol/L Carbon Dioxide 27 (22-29) mmol/L Anion Gap 11 L (12-20) BUN 12 (9-16) mg/dL Creatinine 0.96 (0.5-1.4) mg/dL Estim Creat Clear Calc 46.7 Estimated GFR 58 Random Glucose 96 (60-115) mg/dL Calcium 9.2 (8.4-10.2) mg/dL Total Bilirubin 0.5 (0.0-1.0) mg/dL AST 17 (5-31) U/L ALT 15 (0-31) U/L Alkaline Phosphatase 106 (39-117) U/L Total Protein 7.3 (6.5-8.0) g/dL Albumin 4.2 (3.5-5.0) g/dL Urine Color Urine Appearance Urine pH (5.0-9.0) Ur Specific [place] (1.005-1.025) Urine Protein (Neg-Trace) mg/dL Urine Glucose (UA) (Negative) mg/dL Urine Ketones (Negative) mg/dL Urine Blood (Negative) Urine Nitrite (Negative) Ur Leukocyte Esterase (Negative) Urine RBC (0-2) /HPF Urine WBC (0-5) /HPF Ur Squamous Epith Cells (0-2) /HPF Urine Bacteria (None Seen) Hyaline Casts (0-2) /LPF Influenza Type A (PCR) (Negative) Influenza Type B (PCR) (Negative) RSV RNA Qual (PCR) (Negative) SARS-CoV-2 RNA (RT-PCR) (Negative) 09/12/22 09/12/22 Range/Units 19:03 19:03 WBC (4.8-10.8) X10*3/uL RBC (4.20-5.50) X10*6/uL Hgb (12.0-16.0) g/dl Hct (37.0-47.0) % MCV (80.0-98.0) fL MCH (27.0-33.0) pg MCHC (31.0-35.0) g/dl RDW (11.0-16.0) % Plt Count (160-400) X10*3/uL MPV (9.4-12.3) fL Immature Gran % (Auto) (0.0-0.4) % Neut % (Auto) (45-73) % Lymph % (Auto) (20-40) % [place] % (Auto) (2-11) % Eos % (Auto) (0-4) % Baso % (Auto) (0-2) % Lymph # (Auto) (1.2-4.9) X10*3/uL [place] # (Auto) (0.1-1.2) X10*3/uL Eos # (Auto) (0.0-0.4) X10*3/uL Baso # (Auto) (0.0-0.2) X10*3/uL Abs Immat Gran (auto) (0.00-0.03) X10*3/uL Absolute Neuts (auto) (2.0-8.3) x10*3/uL Absolute Nucleated RBC (0.0-0.012) X10*3/uL Nucleated RBC % (auto) (0.0-0.2) /100WBC PT (10.0-13.1) SEC INR (0.9-1.1) APTT (26.0-36.4) SEC Sodium (135-145) mmol/L Potassium (3.3-5.1) mmol/L Chloride (96-108) mmol/L Carbon Dioxide (22-29) mmol/L Anion Gap (12-20) BUN (9-16) mg/dL Creatinine (0.5-1.4) mg/dL Estim Creat Clear Calc Estimated GFR Random Glucose (60-115) mg/dL Calcium (8.4-10.2) mg/dL Total Bilirubin (0.0-1.0) mg/dL AST (5-31) U/L ALT (0-31) U/L Alkaline Phosphatase (39-117) U/L Total Protein (6.5-8.0) g/dL Albumin (3.5-5.0) g/dL Urine Color Yellow Urine Appearance Cloudy Urine pH 7.5 (5.0-9.0) Ur Specific [place] 1.015 (1.005-1.025) Urine Protein 30 (1+) H (Neg-Trace) mg/dL Urine Glucose (UA) Negative (Negative) mg/dL Urine Ketones Negative (Negative) mg/dL Urine Blood Small (1+) H (Negative) Urine Nitrite Positive H (Negative) Ur Leukocyte Esterase Large (3+) H (Negative) Urine RBC 6-10 H (0-2) /HPF Urine WBC >50 H (0-5) /HPF Ur Squamous Epith Cells 6-10 (0-2) /HPF Urine Bacteria 4+ (None Seen) Hyaline Casts 0-2 (0-2) /LPF Influenza Type A (PCR) NEGATIVE (Negative) Influenza Type B (PCR) NEGATIVE (Negative) RSV RNA Qual (PCR) NEGATIVE (Negative) SARS-CoV-2 RNA (RT-PCR) NEGATIVE (Negative) <LEW Gee - Last Filed: 09/25/22 09:43> Lab Results 09/12/22 09/12/22 09/12/22 Range/Units 19:03 19:03 19:03 WBC 8.6 (4.8-10.8) X10*3/uL RBC 4.78 (4.20-5.50) X10*6/uL Hgb 12.7 (12.0-16.0) g/dl Hct 39.2 (37.0-47.0) % MCV 82.0 (80.0-98.0) fL MCH 26.6 L (27.0-33.0) pg MCHC 32.4 (31.0-35.0) g/dl RDW 13.9 (11.0-16.0) % Plt Count 296 (160-400) X10*3/uL MPV 10.2 (9.4-12.3) fL Immature Gran % (Auto) 0.2 (0.0-0.4) % Neut % (Auto) 61.1 (45-73) % Lymph % (Auto) 30.7 (20-40) % [place] % (Auto) 5.6 (2-11) % Eos % (Auto) 1.5 (0-4) % Baso % (Auto) 0.9 (0-2) % Lymph # (Auto) 2.6 (1.2-4.9) X10*3/uL [place] # (Auto) 0.5 (0.1-1.2) X10*3/uL Eos # (Auto) 0.1 (0.0-0.4) X10*3/uL Baso # (Auto) 0.1 (0.0-0.2) X10*3/uL Abs Immat Gran (auto) 0.02 (0.00-0.03) X10*3/uL Absolute Neuts (auto) 5.2 (2.0-8.3) x10*3/uL Absolute Nucleated RBC 0.000 (0.0-0.012) X10*3/uL Nucleated RBC % (auto) 0.0 (0.0-0.2) /100WBC PT 11.6 (10.0-13.1) SEC INR 1.0 (0.9-1.1) APTT 40.7 H (26.0-36.4) SEC Sodium 142 (135-145) mmol/L Potassium 4.1 (3.3-5.1) mmol/L Chloride 108 (96-108) mmol/L Carbon Dioxide 27 (22-29) mmol/L Anion Gap 11 L (12-20) BUN 12 (9-16) mg/dL Creatinine 0.96 (0.5-1.4) mg/dL Estim Creat Clear Calc 46.7 Estimated GFR 58 Random Glucose 96 (60-115) mg/dL Calcium 9.2 (8.4-10.2) mg/dL Total Bilirubin 0.5 (0.0-1.0) mg/dL AST 17 (5-31) U/L ALT 15 (0-31) U/L Alkaline Phosphatase 106 (39-117) U/L Total Protein 7.3 (6.5-8.0) g/dL Albumin 4.2 (3.5-5.0) g/dL Urine Color Urine Appearance Urine pH (5.0-9.0) Ur Specific [place] (1.005-1.025) Urine Protein (Neg-Trace) mg/dL Urine Glucose (UA) (Negative) mg/dL Urine Ketones (Negative) mg/dL Urine Blood (Negative) Urine Nitrite (Negative) Ur Leukocyte Esterase (Negative) Urine RBC (0-2) /HPF Urine WBC (0-5) /HPF Ur Squamous Epith Cells (0-2) /HPF Urine Bacteria (None Seen) Hyaline Casts (0-2) /LPF Influenza Type A (PCR) (Negative) Influenza Type B (PCR) (Negative) RSV RNA Qual (PCR) (Negative) SARS-CoV-2 RNA (RT-PCR) (Negative) 09/12/22 09/12/22 Range/Units 19:03 19:03 WBC (4.8-10.8) X10*3/uL RBC (4.20-5.50) X10*6/uL Hgb (12.0-16.0) g/dl Hct (37.0-47.0) % MCV (80.0-98.0) fL MCH (27.0-33.0) pg MCHC (31.0-35.0) g/dl RDW (11.0-16.0) % Plt Count (160-400) X10*3/uL MPV (9.4-12.3) fL Immature Gran % (Auto) (0.0-0.4) % Neut % (Auto) (45-73) % Lymph % (Auto) (20-40) % [place] % (Auto) (2-11) % Eos % (Auto) (0-4) % Baso % (Auto) (0-2) % Lymph # (Auto) (1.2-4.9) X10*3/uL [place] # (Auto) (0.1-1.2) X10*3/uL Eos # (Auto) (0.0-0.4) X10*3/uL Baso # (Auto) (0.0-0.2) X10*3/uL Abs Immat Gran (auto) (0.00-0.03) X10*3/uL Absolute Neuts (auto) (2.0-8.3) x10*3/uL Absolute Nucleated RBC (0.0-0.012) X10*3/uL Nucleated RBC % (auto) (0.0-0.2) /100WBC PT (10.0-13.1) SEC INR (0.9-1.1) APTT (26.0-36.4) SEC Sodium (135-145) mmol/L Potassium (3.3-5.1) mmol/L Chloride (96-108) mmol/L Carbon Dioxide (22-29) mmol/L Anion Gap (12-20) BUN (9-16) mg/dL Creatinine (0.5-1.4) mg/dL Estim Creat Clear Calc Estimated GFR Random Glucose (60-115) mg/dL Calcium (8.4-10.2) mg/dL Total Bilirubin (0.0-1.0) mg/dL AST (5-31) U/L ALT (0-31) U/L Alkaline Phosphatase (39-117) U/L Total Protein (6.5-8.0) g/dL Albumin (3.5-5.0) g/dL Urine Color Yellow Urine Appearance Cloudy Urine pH 7.5 (5.0-9.0) Ur Specific [place] 1.015 (1.005-1.025) Urine Protein 30 (1+) H (Neg-Trace) mg/dL Urine Glucose (UA) Negative (Negative) mg/dL Urine Ketones Negative (Negative) mg/dL Urine Blood Small (1+) H (Negative) Urine Nitrite Positive H (Negative) Ur Leukocyte Esterase Large (3+) H (Negative) Urine RBC 6-10 H (0-2) /HPF Urine WBC >50 H (0-5) /HPF Ur Squamous Epith Cells 6-10 (0-2) /HPF Urine Bacteria 4+ (None Seen) Hyaline Casts 0-2 (0-2) /LPF Influenza Type A (PCR) NEGATIVE (Negative) Influenza Type B (PCR) NEGATIVE (Negative) RSV RNA Qual (PCR) NEGATIVE (Negative) SARS-CoV-2 RNA (RT-PCR) NEGATIVE (Negative) <Yudelka Davis CNP - Last Filed: 09/13/22 01:03> Radiology Impression Discussion of test interpretation with radiology: I have reviewed the radiologist's reading. <Yudelka Davis CNP - Last Filed: 09/13/22 01:03> Radiologist Impression: CT/CT abdomen pelvis wo IV con IMPRESSION: 1.? No acute abnormality CT scan abdomen pelvis. 2.? Atrophic right kidney. Nonobstructive calculus lower pole right kidney. No hydronephrosis. No ureteral calculi. <Yudelka Davis CNP - Last Filed: 09/13/22 01:03> Prescription Management I considered prescription management with: Antibiotic <Yudelka Davis CNP - Last Filed: 09/13/22 01:03> Discharge Plan Discharge Clinical Impression: Acute pyelonephritis, Renal calculi <LEW Gee - Last Filed: 09/25/22 09:43> Patient Disposition: Home, Self-Care <LEW Gee Last Filed: 09/25/22 09:43> Instructions: Kidney Stones (ED), Urinary Tract Infection in Older Adults (ED) <LEW Gee Last Filed: 09/25/22 09:43> Additional Instructions: As we discussed you have been given a prescription to treat pyelonephritis which is an infection from the bladder that has traveled to the kidney. Please complete this entire course. You were given a dose while in the emergency department, you will take the next dose tomorrow morning. There is incidental finding of a kidney stone to your right kidney, currently you are not having any right side pain. I believe that this kidney stone was an incidental finding. At this time there is no treatment required for this. If you develop right-sided pain, this may warrant re-evaluation. Follow-up can occur with your primary care provider, and if necessary you would have referral to Urology. You may return back to the emergency department with any new or worsening symptoms or concerns. <LEW Gee Last Filed: 09/25/22 09:43> Prescriptions: New cephalexin 500 mg capsule 500 mg PO BID Qty: 20 0RF No Action ferrous sulfate [Feosol] 325 mg (65 mg iron) tablet 325 mg PO DAILY <LEW Gee Last Filed: 09/25/22 09:43> Referrals: Physician,Unknown J [Primary Care Provider] - <LEW Gee Last Filed: 09/25/22 09:43> Interventions: ED Discharge Assessment Last Done: 09/12/22 21:54 <LEW Gee - Last Filed: 09/25/22 09:43> Discharge Date/Time: 09/12/22 21:55 <LEW Gee - Last Filed: 09/25/22 09:43>
[2022-09-12 19:12] LABS: MANUAL DIFF FLAG NO
[2022-09-12 19:13] LABS: Basophils Absolute Auto 0.1 X10*3/uL (0.0-0.2); Basophils Percent Auto 0.9 % (0-2); Eosinophils Absolute Auto 0.1 X10*3/uL (0.0-0.4); Eosinophils Percent Auto 1.5 % (0-4); Hematocrit 39.2 % (37.0-47.0); Hemoglobin 12.7 g/dl (12.0-16.0); Imm Gran Abs Auto 0.02 X10*3/uL (0.00-0.03); Imm Gran Pct Auto 0.2 % (0.0-0.4); Lymphocytes Absolute Auto 2.6 X10*3/uL (1.2-4.9); Lymphocytes Percent Auto 30.7 % (20-40); Mean Corpuscular HGB Conc 32.4 g/dl (31.0-35.0); Mean Corpuscular Hemoglobin 26.6 pg (27.0-33.0); Mean Platelet Volume 10.2 fL (9.4-12.3); Monocytes Absolute Auto 0.5 X10*3/uL (0.1-1.2); Monocytes Percent Auto 5.6 % (2-11); Neutrophils Absolute Auto 5.2 x10*3/uL (2.0-8.3); Neutrophils Percent Auto 61.1 % (45-73); Platelet Count 296 X10*3/uL (160-400); Red Blood Count 4.78 X10*6/uL (4.20-5.50); Red Cell Distribution Width 13.9 % (11.0-16.0); White Blood Count 8.6 X10*3/uL (4.8-10.8)
[2022-09-12 19:14] LABS: Appearance Urine Cloudy; Color Urine Yellow; Glucose Urine UA Negative (Negative); Leukocyte Esterase Urine Large (3+) (Negative); Nitrite Urine Positive (Negative); PH 7.5 (5.0-9.0); Specific Gravity - Urine 1.015 (1.005-1.025); UMIC TRIGGER UACC YES; Urine Blood Small (1+) (Negative); Urine Ketones Negative (Negative); Urine Protein 30 (1+) mg/dL (Neg-Trace)
[2022-09-12 19:19] LABS: Prothrombin Time 11.6 SEC (10.0-13.1)
[2022-09-12 19:22] LABS: Partial Thromboplastin Time 40.7 SEC (26.0-36.4)
[2022-09-12 19:26] LABS: Bacteria Urine 4+ (None Seen); Hyaline Casts Urine 0-2 /LPF (0-2); UACC Culture Trigger YES; WBC Urine >50 /HPF (0-5)
[2022-09-12 19:29] LABS: Alanine Aminotransferase 15 U/L (0-31); Albumin Level 4.2 g/dL (3.5-5.0); Alkaline Phosphatase 106 U/L (39-117); Anion Gap 11 (12-20); Aspartate Amino Transferase 17 U/L (5-31); Bilirubin Total 0.5 mg/dL (0.0-1.0); Blood Urea Nitrogen 12 mg/dL (9-16); Calcium 9.2 mg/dL (8.4-10.2); Carbon Dioxide 27 mmol/L (22-29); Chloride 108 mmol/L (96-108); Creatinine Clr Calc Pharmacy 46.7; Estimated Glomerular Filt Rate 58; Glucose Random 96 mg/dL (60-115); Potassium 4.1 mmol/L (3.3-5.1); Sodium 142 mmol/L (135-145); Total Protein 7.3 g/dL (6.5-8.0)
[2022-09-12 19:49] LABS: Influenza A PCR NEGATIVE (Negative); Influenza B PCR NEGATIVE (Negative); Resp Syncy Virus RNA Qual PCR NEGATIVE (Negative); SARS COV2 PCR INHOUSE NEGATIVE (Negative)
[2022-09-12] MEDS: cephALEXin 500 MG CAPSULE PO (21:50)
--- NOTE | 2022-09-12 21:54 | PC.NURSE ---
attempted to discharge pt, per pt provider stated she would give first dose of medication, provider notified, pt medicated per provider order.
== END 2022-09-12 21:55 | disposition home or self-care (01) ==
PROVIDERS: Physician Assistant; Emergency Provider Emergency Medicine Emergency Medical Services
DX: M54.50 Low back pain, unspecified (principal); R10.32 Left lower quadrant pain; M25.552 Pain in left hip; Z20.822 Contact with and (suspected) exposure to COVID-19; Z20.828 Contact with and (suspected) exposure to other viral communicable diseases; Z79.899 Other long term (current) drug therapy
CPT/HCPCS: 0241U; 36415; 74176; 80053; 81001; 85025; 85610; 85730; 87086; 99282; 99284

== ENCOUNTER 2022-10-04 11:45 | Outpatient (REF) | payer OTHER, MEDICAID, SELFPAY ==
--- NOTE | 2022-10-04 10:00 | EMG_ITS ---
Please see scanned EMG / Nerve Conduction Report. MTDD
== END 2022-10-04 11:46 | disposition home or self-care (01) ==
LOC: HO.NEURO 11:45
PROVIDERS: Visit Provider Emergency Medicine
DX: M79.641 Pain in right hand (principal); M79.642 Pain in left hand; R20.0 Anesthesia of skin
CPT/HCPCS: 95885; 95913

== ENCOUNTER 2023-10-03 18:39 | Outpatient (REF) | payer OTHER, MEDICAID, SELFPAY | END 2023-10-03 18:40 | disposition home or self-care (01) | LOC: HO.HHCLNP 18:39 | PROVIDERS: Visit Provider Emergency Medicine | DX: R30.0 Dysuria (principal) | CPT/HCPCS: 87086 ==

== ENCOUNTER 2024-04-07 10:41 | Emergency (ER) | payer OTHER, SELFPAY ==
[2024-04-07 10:50] VITALS: BP 121/73; PULSE 69; RESP 16; TEMP 36.6; O2SAT 97; BMI 33.0
[2024-04-07 11:07] LABS: Appearance Urine Cloudy; Color Urine Yellow; Glucose Urine UA Negative (Negative); Leukocyte Esterase Urine Large (3+) (Negative); Nitrite Urine Positive (Negative); UMIC TRIGGER UACC YES; Urine Blood Small (1+) (Negative); Urine Ketones Negative (Negative); Urine Protein Trace mg/dL (Neg-Trace)
[2024-04-07 11:15] LABS: Bacteria Urine 4+ (None Seen); Hyaline Casts Urine 0-2 /LPF (0-2); Squamous Epithelial Cell Urine 0-2 /HPF (0-2); UACC Culture Trigger YES; WBC Urine >50 /HPF (0-5)
--- NOTE | 2024-04-07 11:58 | ED_ITS ---
HPI - Ear Problem General Chief complaint: Ear Problems Stated complaint: ear pain Time Seen by Provider: 04/07/24 11:41 Source: patient Mode of arrival: ambulatory Limitations: no limitations History of Present Illness ED Provider: Juan Dumas PA-C HPI Narrative: 68 year old female with PMH of Fibromyalgia, HTN and diabetes presents today with a 2 day history of left ear pain, tinnitus and dizziness. She is also complaining of urinary frequency and urgency, as well as burning upon urination. Patient states she was swimming at [employer] a few days prior to symptoms and then 2 days ago began experiencing ear pain and UTI symptoms. States that she feels like there is a mosquito flying in her ear and that it hurts to pull on the ear. She also states that she began having urgency and frewquency as well as burning with urination about 2 days ago as well. Denies and fevers, flank pain, difficulty urinating, colicky pain in the flank, discharge. MD Complaint: ear pain Location: left ear Duration: constant Severity: mild Context: recent swimming Discharge from ear: no Associated symptoms ear: tinnitus Treatment prior to arrival: none Related Data Home Medications ?Medication ?Instructions ?Recorded ?Confirmed ferrous sulfate 325 mg (65 mg 325 mg PO DAILY 01/20/22 01/20/22 iron) tablet (Feosol) Previous Rx's ?Medication ?Instructions ?Recorded cephalexin 500 mg capsule 500 mg PO BID #20 caps 09/12/22 cefuroxime axetil 250 mg tablet 250 mg PO BID 7 days #14 tabs 04/07/24 ciprofloxacin 0.3 %-dexamethasone 4 drp otic (ears) BID 7 days #7.5 04/07/24 0.1 % ear drops,suspension mL Allergies Allergy/AdvReac Type Severity Reaction Status Date / Time Penicillins [PENICILLINS] Allergy Severe SWELLING Verified 04/07/24 10:52 zolpidem [From AMBIEN] Allergy Unknown HALLUCINATI Verified 04/07/24 10:52 ONS Review of Systems Review of Systems: Yes all other systems are reviewed and are negative [facility] Past Medical History Medical History Asthma Constipation Fibromyalgia Surgical History History of Hx of colonoscopy Social History Social History Alcohol intake: never Second Hand Smoke Exposure: No Advance Directives: No Advance Directives Information Provided: No Physical Exam Vital Signs: Vital Signs: Last Vital Signs Temp 97.9 F 04/07/24 12:30 Pulse 69 04/07/24 12:30 Resp 16 04/07/24 12:30 BP 121/73 04/07/24 12:30 Pulse Ox 97 04/07/24 12:30 O2 Del Method Room Air 04/07/24 12:30 BMI result Body Mass Index 33.0 Appearance: Alert. Oriented X3. No acute distress. HEENT: left inner ear is erythematous and slightly swollen on inspection, there is pain with pulling of the ear and pain with insertion of otoscope. normal inspection of bilateral TMs. no mastoid tenderness or erythema bilaterally. hearing is normal bilaterally. CVS: Normal heart rate and rhythm. Pulses normal. Respiratory: No respiratory distress. Abd: soft, non-tender, non-distended. +BS Skin: Skin warm and dry. Normal skin color. Normal skin turgor. No rashes. Extremities: Normal, no injuries or trauma noted. Neuro: Oriented X 3. grossly normal. nonfocal Medical Decision Making Medical Decision Making [facility] Narrative: 68-year-old female presents to the ER for evaluation of left ear pain and fullness for the last 2 days. Symptoms started after she swam [place] [employer]. No drainage from the ear. No hearing loss. She reports some dizziness with the ear pain. Patient also reports urinary symptoms with urgency, frequency and dysuria. No abdominal pain or fevers. Patient arrives to the ER hemodynamically stable and afebrile. Examination is consistent with mild otitis externa with erythema of the distal ear canal. Tympanic membrane is intact. Her urinalysis is also positive for infection. She will need oral antibiotics for UTI and topical antibiotic drops for otitis externa. Patient counseled on results and management as well as return precautions. Stable for discharge home. Differential Diagnosis Differential Diagnoses: The differential diagnosis associated with the presentation includes Otitis media, otitis externa, cerumen impaction, Vertigo, UTI, pyelonephritis Lab Data [facility] Lab Attestation statement: I reviewed the patient's lab results. Positive urinalysis with evidence of infection Labs: Lab Results 04/07/24 Range/Units 10:58 Urine Color Yellow Urine Appearance Cloudy Urine pH 6.0 (5.0-9.0) Ur Specific Farber 1.020 (1.005-1.025) Urine Protein Trace (Neg-Trace) mg/dL Urine Glucose (UA) Negative (Negative) mg/dL Urine Ketones Negative (Negative) mg/dL Urine Blood Small (1+) H (Negative) Urine Nitrite Positive H (Negative) Ur Leukocyte Esterase Large (3+) H (Negative) Urine RBC 3-5 H (0-2) /HPF Urine WBC >50 H (0-5) /HPF Ur Squamous Epith Cells 0-2 (0-2) /HPF Urine Bacteria 4+ (None Seen) Hyaline Casts 0-2 (0-2) /LPF External Record Review External record reviewed: Outpatient record, Prior outpatient labs and Prior outpatient radiology Prescription Management I considered prescription management with: Pain Medication and Antibiotic Chronic Conditions Patient?s care impacted by: Hypertension Critical Care Time Critical Care Time Critical Care Time: No Discharge Plan Discharge Clinical Impression: Acute UTI Otitis externa Qualifiers: Otitis externa type: swimmer's ear Chronicity: acute Laterality: left Qualified Code(s): H60.332 - Swimmer's ear, left ear Patient Disposition: Home, Self-Care Instructions: Urinary Tract Infection in Women (DC), Otitis Externa (DC) Additional Instructions: You were found to have a urinary tract infection Take the prescribed antibiotics as directed, complete the entire course and do not miss any doses You have an infection of the ear canal. Use topical antibiotic drops 2 times a day for 1 week. Denied do not get water in your ear. No swimming Follow-up with your doctor as needed If you develop new or worsening symptoms call 911 or come back to the ER for further evaluation. Prescriptions: New ciprofloxacin-dexamethasone 0.3-0.1 % drops,suspension 4 drp otic (ears) BID 7 Days Qty: 7.5 0RF cefuroxime axetil 250 mg tablet 250 mg PO BID 7 Days Qty: 14 0RF No Action cephalexin 500 mg capsule 500 mg PO BID Qty: 20 0RF ferrous sulfate [Feosol] 325 mg (65 mg iron) tablet 325 mg PO DAILY Interventions: ED Discharge Assessment Last Done: 04/07/24 12:30 Discharge Date/Time: 04/07/24 12:30 Print Language: Slovak
[2024-04-07 12:30] VITALS: BP 121/73; PULSE 69; RESP 16; TEMP 36.6; O2SAT 97
== END 2024-04-07 12:30 | disposition home or self-care (01) ==
PROVIDERS: Emergency Provider Emergency Medicine Emergency Medical Services; PCP Nurse Practitioner Primary Care
DX: H60.332 Swimmer's ear, left ear (principal); N39.0 Urinary tract infection, site not specified; H92.02 Otalgia, left ear; H93.12 Tinnitus, left ear; R35.0 Frequency of micturition; Z79.899 Other long term (current) drug therapy
CPT/HCPCS: 81001; 87086; 87088; 87186; 99282; 99283

== ENCOUNTER 2024-04-18 11:50 | Emergency (ER) | payer OTHER, SELFPAY ==
--- NOTE | ~2024-04-18 | XR_ITS ---
EXAMINATION: XR KNEE, RIGHT CLINICAL INFORMATION: Fall onto knee, anterior pain. COMPARISON: Right knee 03/25/2019. TECHNIQUE: Four views of the right knee. FINDINGS: Alignment is anatomic. No joint effusion. Mild narrowing of the medial compartment without significant degenerative changes. No visible fracture. XR/XR knee RT 3V IMPRESSION: No visible fracture. Electronically signed by: Edin Perez MD 04/18/2024 02:36 PM EDT
[2024-04-18 12:03] VITALS: BP 129/73; PULSE 87; RESP 16; TEMP 36.2; O2SAT 95; BMI 33.3
--- NOTE | 2024-04-18 12:06 | ED_ITS ---
HPI - Extremity Injury (Lower) General Chief Complaint: Extremity Injury, Lower Stated Complaint: Fall , swollen knee Time Seen by Provider: 04/18/24 12:21 Source: patient Mode of arrival: ambulatory Limitations: no limitations History of Present Illness ED Provider: Jamaica Barba PA-C HPI Narrative: Patient is a 68 year old assigned female at with a history of HTN, DM, and fibromyalgia presenting to the emergency department today with right knee pain. Patient states that she slipped and fell, landing directly on her right knee and now she has pain. Patient denies any head strike or loss of consciousness. Patient denies any dizziness, lightheadedness, abdominal pain, nausea, vomiting, fever, chills, blurry vision, double vision, loss of vision, chest pain, difficulty breathing, shortness of breath, back pain, night sweats, pain with urination, increased urinary frequency, increased urinary urgency, blood in her urine or stool, syncope or a near syncopal episode, bowel incontinence, bladder incontinence, or any other complaints at this time. MD complaint: knee injury Type of Injury: blunt Context: fall Related Data Home Medications ?Medication ?Instructions ?Recorded ?Confirmed ferrous sulfate 325 mg (65 mg 325 mg PO DAILY 01/20/22 01/20/22 iron) tablet (Feosol) Previous Rx's ?Medication ?Instructions ?Recorded cephalexin 500 mg capsule 500 mg PO BID #20 caps 09/12/22 cefuroxime axetil 250 mg tablet 250 mg PO BID 7 days #14 tabs 04/07/24 ciprofloxacin 0.3 %-dexamethasone 4 drp otic (ears) BID 7 days #7.5 04/07/24 0.1 % ear drops,suspension mL naproxen 500 mg tablet 500 mg PO BID 7 days #14 tabs 04/18/24 Allergies Allergy/AdvReac Type Severity Reaction Status Date / Time Penicillins [PENICILLINS] Allergy Severe SWELLING Verified 04/18/24 12:05 zolpidem [From AMBIEN] Allergy Unknown HALLUCINATI Verified 04/18/24 12:05 ONS Review of Systems Constitutional: Constitutional: Reports no additional constitutional complaints, Denies chills, Denies fever(s) and Denies night sweats Eyes: Eyes: Reports no additional eye complaints, Denies blurry vision, Denies change in vision, Denies diplopia, Denies eye discharge, Denies loss of vision and Denies eye pain ENT: Denies dizziness Cardiovascular: Cardiovascular: Reports no additional cardiovascular complaints, Denies chest pain, Denies lightheadedness, Denies Loss of Consciousness and Denies dyspnea Respiratory: Respiratory: Reports no additional respiratory complaints and Denies dyspnea Gastrointestinal: Gastrointestinal: Reports no additional gastrointestinal complaints, Denies abdominal pain, Denies melena, Denies hematochezia, Denies change in bowel habits and Denies change in stool character Genitourinary: Genitourinary: Denies hematuria, Denies urinary frequency, Denies dysuria, Denies urinary incontinence, Denies urinary hesitancy and Denies urinary urgency Musculoskeletal: Musculoskeletal: Reports no additional musculoskeletal complaints, Denies numbness and Denies tingling Comments: right knee pain Neurologic: Denies dizziness, Denies loss of vision, Denies numbness and Denies tingling Psychiatric: Psychiatric: Reports no additional psychiatric complaints Endocrine: Endocrine: Reports no additional endocrine complaints Hematologic/Lymphatic: Hematologic/Lymphatic: Reports no additional hematologic/lymphatic complaints Allergic/Immunologic: Allergic/Immunologic: Reports no additional allergic/immunologic complaints PMFSH Past Medical History Attestation statement: The following information was validated with the patient. Source: old records reviewed and nursing notes reviewed Medical History Fibromyalgia Asthma Constipation Surgical History Hx of colonoscopy History of Social History Social History Alcohol intake: never Second Hand Smoke Exposure: No Advance Directives: No Advance Directives Information Provided: Yes Do you have a plan to hurt others: No Plan Physical Exam Vital Signs: Vital Signs: Last Vital Signs Temp 97.1 F 04/18/24 15:28 Pulse 87 04/18/24 15:28 Resp 16 04/18/24 15:28 BP 129/73 04/18/24 15:28 Pulse Ox 95 04/18/24 15:28 O2 Del Method Room Air 04/18/24 15:28 BMI result Body Mass Index 33.3 Const: General: cooperative, no acute distress, alert and awake Nutritional Appearance: well nourished Orientation/consciousness: patient oriented x3 Limitations: no limitations HEENT: Head: Yes normal to inspection and Yes atraumatic Ears: hearing grossly normal bilaterally and external ears normal General nose exam: Normal external nose present, no nasal discharge noted and no epistaxis Face and sinus: Yes normal facial exam, No abrasion and No laceration Mouth: Normal oral and palatal mucosa present, no drooling and no muffled voice Eyes: General: appearance normal, both eyes and all related structures Periorbital: periorbital findings normal Eyelids: Yes eyelids normal Conjunctivae: conjunctivae normal Pupils: Equal, round and reactive pupils present EOM: EOMs intact bilaterally Neck: Neck: Yes normal visual inspection, Yes full ROM and Yes no lymphadenopathy Chest: Chest palpation & inspection: normal inspection of the chest Resp: Effort & Inspection: normal respiratory effort and able to speak in complete sentences GI: Inspection: Yes normal to inspection Neuro: General: patient oriented x3 and moves all extremities Cranial nerves: Yes Equal, round and reactive pupils present Cognition (Neuro): normal cognition Extrem: Other: pain with flexion and extension of the right knee General: Yes normal to inspection and Yes capillary refill normal Psych: Appearance: grossly normal Mental Status: mental status grossly normal Affect: normal affect Attitude: cooperative Thought process: Normal thought process present Thought content: Normal thought content present Insight: Good insight present (Psych) Course Course Course Narrative: This is a Rapid Medical Examination (RME) performed by Vianney Bean PA-C in triage. Full HPI, ROS, assessment and treatment plan per primary provider in the Main ED. 68 yo female hx of DM, HTN, fibromyalgia here for eval of right knee pain s/p slip and fall at home last night. reports slipping and falling onto her right knee. +right knee pain since with pain on flexion. no OTC pain meds MEDICINE MAN. + ambulating with limping gait. minimal swelling noted to right knee. no noted deformity. nv intact distally. Plan: xrs ordered Medications Administered Discontinued Medications Generic Name Dose Route Start Last Admin Trade Name Freq PRN Reason Stop Dose Admin Ketorolac Tromethamine 15 mg 04/18/24 14:41 04/18/24 14:58 Ketorolac Tromethamine 15 Mg/Ml Vial IM 04/18/24 14:42 15 mg ONCE ONE Administration Oxycodone HCl 10 mg 04/18/24 14:41 04/18/24 14:57 Oxycodone Hcl Immed Release 5 Mg Tablet PO 04/18/24 14:42 10 mg ONCE ONE Administration Medical Decision Making Medical Decision Making MDM Narrative: Patient is a 68 year old assigned female at with a history of DM, HTN, and fibromyalgia presenting to the emergency department today with right knee pain after a trip and fall. Patient's physical exam as noted in the physical exam portion of this note. Patient's right knee x-ray showed no acute process. Given the patient is >65 years old and fell, it is standard of practice to obtain a non-contrast head and c-spine CT scan. Patient adamantly refused this testing. AMA form signed confirming the patient's refusal of this testing and that she understood all risks associated with refusing such as or permanent disability. I explained my physical exam findings as well as all test results to the patient. I answered all questions asked by the patient. Patient's right knee was placed in a knee immobilizer, without incident. Patient's PMS was intact prior to and after immobilizer placement. Patient was given crutches with crutch instructions. I stressed the importance of the patient taking her medication as directed (either prescribed or as the over the counter packaging recommends). I stressed the importance of the patient following up with her primary care provider and an orthopedic provider. I stressed the importance of the patient returning to the emergency department immediately if her symptoms were to worsen or if she were to develop any dizziness, shortness of breath, difficulty breathing, chest pain, blurry vision, loss of vision, nausea, vomiting, abdominal pain, fever, chills, back pain, or any other complaints. Patient verbalized agreement and understanding with this treatment plan and discharge. Differential Diagnosis Differential Diagnoses: The differential diagnosis associated with the presentation includes Knee sprain Knee strain Patellar fracture Quad injury Admission/Observation Consideration of admission/observation: Escalation of care including admission/observation considered Patient would have been admitted to the hospital had her work up had any findings where hospital admission was appropriate and her clinical presentation warranted hospital admission. Independent Interpretation I performed an independent interpretation of an: Plain X-Ray Interpretation: My interpretation is in agreement with the radiologist's impression of this imaging study. EXAMINATION: XR KNEE, RIGHT CLINICAL INFORMATION: Fall onto knee, anterior pain. COMPARISON: Right knee 03/25/2019. TECHNIQUE: Four views of the right knee. FINDINGS: Alignment is anatomic. No joint effusion. Mild narrowing of the medial compartment without significant degenerative changes. No visible fracture. XR/XR knee RT 3V IMPRESSION: No visible fracture. Electronically signed by: Edin Perez MD 04/18/2024 02:36 PM EDT RP Dictated By: Edin Perez MD Signed By: Electronically signed by Edin Perez MD 04/18/24 1436 Radiology Impression Discussion of test interpretation with radiology: I have reviewed the radiolo gist's reading. Prescription Management I considered prescription management with: Pain Medication (patient prescribed pain medication) Chronic Conditions Patient?s care impacted by: Diabetes and Hypertension Procedures Orthopedic Splinting/Casting Injury #1: Side: right Lower Extremity Injury Location: knee Lower Extremity Immobilizer: knee immobilizer Other Orthopedic Equipment: crutches Discharge Plan Discharge Clinical Impression: Knee sprain, Acute knee pain Patient Disposition: Home, Self-Care Instructions: Knee Sprain (DC), Crutch Instructions (ED), Knee Pain (ED) Additional Instructions: Follow up with your primary care provider and an orthopedic provider. Return to the emergency department immediately if your symptoms worsen or if you develop any dizziness, shortness of breath, difficulty breathing, chest pain, blurry vision, loss of vision, nausea, vomiting, abdominal pain, fever, chills, back pain, or any other complaints. Prescriptions: New naproxen 500 mg tablet 500 mg PO BID 7 Days Qty: 14 0RF No Action cephalexin 500 mg capsule 500 mg PO BID Qty: 20 0RF ciprofloxacin-dexamethasone 0.3-0.1 % drops,suspension 4 drp otic (ears) BID 7 Days Qty: 7.5 0RF cefuroxime axetil 250 mg tablet 250 mg PO BID 7 Days Qty: 14 0RF ferrous sulfate [Feosol] 325 mg (65 mg iron) tablet 325 mg PO DAILY Referrals: [facility] [Provider Group] (Call to establish and follow up with an orthopedic provider.) Priyanka Vale NP [Primary Care Provider] - Stand Alone Forms: Against Medical Advice Interventions: ED Discharge Assessment Last Done: 04/18/24 15:28 Discharge Date/Time: 04/18/24 15:28 Print Language: Bhutanese
[2024-04-18] MEDS: oxyCODONE HCl Immed Release 5 MG TABLET 10 MG PO (14:57)
[2024-04-18] MEDS: Ketorolac Tromethamine 15 MG/ML VIAL IM (14:58)
--- NOTE | 2024-04-18 15:21 | PC.NURSE ---
PT Medicated per OCT. PT received Knee immobilizer and crutches, crutches education given to patient, pt demonstrated how to use crutches and verbalizes understanding of the teaching. PT had CT scan ordered and refuses to get CT scan done, PT Educated on risks from Provider and this nurse on why the CT scan is important and the risks of not getting it, PT signed AMA form, the AMA form was read to the patient and the form was explained. PT verbalizes understanding of leaving AMA.
[2024-04-18 15:28] VITALS: BP 129/73; PULSE 87; RESP 16; TEMP 36.2; O2SAT 95
== END 2024-04-18 15:28 | disposition home or self-care (01) ==
PROVIDERS: Emergency Provider Emergency Medicine; PCP Nurse Practitioner Primary Care
DX: S83.91XA Sprain of unspecified site of right knee, initial encounter (principal); W01.0XXA Fall on same level from slipping, tripping and stumbling without subsequent striking against object, initial encounter; M25.561 Pain in right knee; E11.9 Type 2 diabetes mellitus without complications; I10 Essential (primary) hypertension; Y93.9 Activity, unspecified; Y92.009 Unspecified place in unspecified non-institutional (private) residence as the place of occurrence of the external cause; Y99.9 Unspecified external cause status
CPT/HCPCS: 73562; 96372; 99283; 99284; J1885